=== PATIENT | female | born 1955 | race Caucasian/White ===

== ENCOUNTER 2024-03-15 16:06 | Emergency (ER) | payer MEDICARE ==
[~2024-03-15] VITALS: Ht 162.6 cm; Wt 62.0 kg
[~2024-03-15 16:06] MED LIST: ASCO-419; ASCO500T20 PO; CHOL500049 PO; CLOB15GE2 TOP; DESV100T16 PO; DESV50TA20 PO; DOXY-224 PO; LANS30CA56 PO; LEVO7.5T7 PO; LEVO750T68 PO; METH; MULT-1085 PO; OXYC-658 PO; TACROLIMUS; TRIA454O TOP; [UNRECOGNIZED DRUG - CODE] PO; clotrimazole; lidocaine
[2024-03-15 16:07] VITALS: BP 137/65; PULSE 110; RESP 18; TEMP 97.5; O2SAT 94
[2024-03-15 17:04] LABS: EOSINOPHILS # (AUTO) 0.1 X10'3 (0-0.9); EOSINOPHILS % (AUTO) 2.5 % (0-6); HEMATOCRIT 24.5 % (35.0-45.0); HEMOGLOBIN 7.9 g/dl (12.0-16.0); LYMPHOCYTES # (AUTO) 1.6 X10'3 (1.1-4.8); LYMPHOCYTES % (AUTO) 51.7 % (21-51); MEAN CORPUSCULAR HEMOGLOBIN 33.8 PG (27.0-31.0); MEAN CORPUSCULAR HGB CONC 32.2 g/dL (33.0-36.5); MEAN CORPUSCULAR VOLUME 104.8 FL (78-98); MEAN PLATELET VOLUME 9.8 FL (7.4-10.4); MONOCYTES # (AUTO) 0.7 X10'3 (0-0.9); MONOCYTES % (AUTO) 20.9 % (2-12); NEUTROPHILS # (AUTO) 0.8 X10'3 (1.8-7.7); NEUTROPHILS % (AUTO) 23.9 % (42-75); PLATELET COUNT 124 X10'3 (140-440); RED BLOOD COUNT 2.34 X10'6 (4.20-5.60); RED CELL DISTRIBUTION WIDTH 26.9 % (11.5-14.5); WHITE BLOOD COUNT 3.1 X10'3 (4.5-11.0)
[2024-03-15 23:12] LABS: PLATELET ESTIMATE DECREASED
[2024-03-15 23:13] LABS: ANISOCYTOSIS 3+; ELLIPTOCYTES FEW; HYPOCHROMASIA 1+; POLYCHROMASIA 1+; SCHISTOCYTES FEW; TEAR DROP CELLS FEW
== END 2024-03-15 21:40 | disposition home or self-care (01) ==
LOC: ER 16:06
DX: D64.9 Anemia, unspecified (principal); Z88.8 Allergy status to other drugs, medicaments and biological substances; Z79.899 Other long term (current) drug therapy; Z79.2 Long term (current) use of antibiotics
CPT/HCPCS: 36415; 85008; 85025; 99283

== ENCOUNTER 2024-07-25 14:07 | Inpatient (IN) | payer MEDICARE ==
[~2024-07-25] VITALS: Ht 167.6 cm; Wt 67.8 kg
[2024-07-25 15:25] LABS: BASOPHILS % (AUTO) 1.3 % (0-1); EOSINOPHILS # (AUTO) 0.3 X10'3 (0-0.9); EOSINOPHILS % (AUTO) 10.5 % (0-6); LYMPHOCYTES # (AUTO) 1.2 X10'3 (1.1-4.8); MEAN CORPUSCULAR HEMOGLOBIN 35.1 PG (27.0-31.0); MEAN CORPUSCULAR HGB CONC 33.4 g/dL (33.0-36.5); MEAN CORPUSCULAR VOLUME 105.2 FL (78-98); MEAN PLATELET VOLUME 10.9 FL (7.4-10.4); MONOCYTES # (AUTO) 0.1 X10'3 (0-0.9); MONOCYTES % (AUTO) 2.4 % (2-12); NEUTROPHILS # (AUTO) 1.5 X10'3 (1.8-7.7); NEUTROPHILS % (AUTO) 47.8 % (42-75); RED BLOOD COUNT 1.67 X10'6 (4.20-5.60); RED CELL DISTRIBUTION WIDTH 25.5 % (11.5-14.5); WHITE BLOOD COUNT 3.2 X10'3 (4.5-11.0)
[2024-07-25 15:28] LABS: HEMATOCRIT 17.6 % (35.0-45.0); HEMOGLOBIN 5.9 g/dl (12.0-16.0)
[2024-07-25 15:29] LABS: ALANINE AMINOTRANSFERASE 30 U/L (12-78); ALBUMIN 3.2 G/DL (3.4-5.0); ALBUMIN/GLOBULIN RATIO 1.1 (1.1-1.5); ALKALINE PHOSPHATASE 119 IU/L (46-116); ANION GAP 9 (8-16); ASPARTATE AMINO TRANSFERASE 31 U/L (10-37); BILIRUBIN,TOTAL 0.5 MG/DL (0.1-1.0); BLOOD UREA NITROGEN 24 MG/DL (7-18); BUN/CREATININE RATIO 31.2 (10.0-20.0); CALCIUM 8.7 MG/DL (8.5-10.1); CHLORIDE 100 MMOL/L (99-107); CREATININE 0.77 MG/DL (0.40-0.90); GLUCOSE 97 MG/DL (70-104); PLATELET COUNT 9 X10'3 (140-440); POTASSIUM 4.3 MMOL/L (3.5-5.1); SODIUM 136 MMOL/L (135-145); TOTAL CARBON DIOXIDE 27.3 MMOL/L (24-32); TOTAL PROTEIN 6.2 G/DL (6.4-8.2); eCRCL 63 ML/MIN; eGFR 74 ML/MIN
[2024-07-25 15:53] LABS: APTT 24 SECONDS (22-32); PROTHROMBIN TIME 10.8 SECONDS (9.0-12.0)
[2024-07-25 16:04] LABS: ANISOCYTOSIS 3+; PLATELET ESTIMATE DECREASED; TOTAL CELLS COUNTED 100
[2024-07-25 16:05] LABS: TEAR DROP CELLS FEW
[2024-07-25 16:06] LABS: HYPERSEGMENTED NEUTROPHILS FEW
[2024-07-25] MEDS ORDERED: magnesium sulf-water 4G/100mL 100 ML IV PRN (16:20)
[2024-07-25] MEDS ORDERED: magnesium Cl slow-release 64mg tablet PO PRN (16:20)
[2024-07-25] MEDS ORDERED: ondansetron/PF 4mg/2ml inj IV PRN (16:20)
[2024-07-25] MEDS ORDERED: magnesium sulf-water 2g/50mL 50 ML IV PRN (16:20)
[2024-07-25] MEDS ORDERED: potassium Cl 40MEQ/1/2NS 520ml 520 ML IV PRN (16:20)
[2024-07-25] MEDS ORDERED: potassium Cl 20 mEq SR tablet PO PRN ×2 (16:20)
[2024-07-25 19:00] VITALS: BP 102/42; PULSE 89; RESP 16; TEMP 98.2
[2024-07-25 19:29] VITALS: BP 117/50; PULSE 81; RESP 16; TEMP 98.3
[2024-07-25 19:50] VITALS: BP 113/54; PULSE 91; RESP 18; TEMP 98.2
[2024-07-25 20:20] VITALS: BP 113/5; PULSE 93; RESP 19; TEMP 98.5
[2024-07-25] MEDS ORDERED: LIDOCAINE 5% OINTMENT 35GM TP SCH (20:30)
[2024-07-25] MEDS ORDERED: neomy sulf/bacitrac zn/polymixin b oint 28.4 gm tube TP PRN (20:35)
[2024-07-25] MEDS ORDERED: LIDOCAINE 5% OINTMENT 35GM TP PRN (20:36)
[2024-07-25 21:32] VITALS: BP 117/50; PULSE 89; RESP 16; TEMP 98.3
[2024-07-26] VITALS (7 sets, daily range): BP systolic 103–121; BP diastolic 49–64; PULSE 84–99; RESP 15–20; TEMP 97.9–98.8; O2SAT 93–100
[2024-07-26] MEDS ORDERED: PREG50CA65 PO (00:02)
[2024-07-26] MEDS: montelukast 10mg tablet PO ONE (01:54)
[2024-07-26 06:13] LABS: EOSINOPHILS # (AUTO) 0.5 X10'3 (0-0.9); HEMOGLOBIN 8.3 g/dl (12.0-16.0); LYMPHOCYTES # (AUTO) 0.8 X10'3 (1.1-4.8); MONOCYTES # (AUTO) 0.1 X10'3 (0-0.9); NEUTROPHILS # (AUTO) 1.2 X10'3 (1.8-7.7); WHITE BLOOD COUNT 2.5 X10'3 (4.5-11.0)
[2024-07-26 06:17] LABS: BASOPHILS % (AUTO) 0.7 % (0-1); EOSINOPHILS % (AUTO) 19.3 % (0-6); HEMATOCRIT 24.3 % (35.0-45.0); LYMPHOCYTES % (AUTO) 30.9 % (21-51); MEAN CORPUSCULAR HEMOGLOBIN 33.9 PG (27.0-31.0); MEAN CORPUSCULAR HGB CONC 34.2 g/dL (33.0-36.5); MEAN CORPUSCULAR VOLUME 99.2 FL (78-98); MONOCYTES % (AUTO) 2.4 % (2-12); NEUTROPHILS % (AUTO) 46.7 % (42-75); RED BLOOD COUNT 2.45 X10'6 (4.20-5.60); RED CELL DISTRIBUTION WIDTH 17.2 % (11.5-14.5)
[2024-07-26 06:31] LABS: ALANINE AMINOTRANSFERASE 31 U/L (12-78); ALBUMIN 3.1 G/DL (3.4-5.0); ALBUMIN/GLOBULIN RATIO 1.2 (1.1-1.5); ALKALINE PHOSPHATASE 108 IU/L (46-116); ANION GAP 8 (8-16); ASPARTATE AMINO TRANSFERASE 27 U/L (10-37); BILIRUBIN,TOTAL 1.8 MG/DL (0.1-1.0); BLOOD UREA NITROGEN 15 MG/DL (7-18); BUN/CREATININE RATIO 23.8 (10.0-20.0); CALCIUM 8.3 MG/DL (8.5-10.1); CHLORIDE 107 MMOL/L (99-107); CREATININE 0.63 MG/DL (0.40-0.90); GLUCOSE 91 MG/DL (70-104); POTASSIUM 3.7 MMOL/L (3.5-5.1); SODIUM 143 MMOL/L (135-145); TOTAL CARBON DIOXIDE 28.4 MMOL/L (24-32); TOTAL PROTEIN 5.7 G/DL (6.4-8.2); eCRCL 77 ML/MIN; eGFR > 90 ML/MIN
[2024-07-26 06:55] LABS: ANISOCYTOSIS 1+; NUCLEATED RED BLOOD CELLS 1 /100WBC (0-0); PLATELET ESTIMATE DECREASED; TOTAL CELLS COUNTED 100
[2024-07-26 06:56] LABS: TEAR DROP CELLS FEW
[2024-07-26 10:02] LABS: PLATELET COUNT 50 X10'3 (140-440)
[2024-07-26] MEDS: acetaminophen 325mg tablet PO PRN (14:39)
[2024-07-26 15:42] LABS: BASOPHILS % (AUTO) 0.5 % (0-1); EOSINOPHILS # (AUTO) 0.5 X10'3 (0-0.9); EOSINOPHILS % (AUTO) 17.8 % (0-6); HEMATOCRIT 26.3 % (35.0-45.0); LYMPHOCYTES # (AUTO) 0.7 X10'3 (1.1-4.8); LYMPHOCYTES % (AUTO) 25.2 % (21-51); MEAN CORPUSCULAR HEMOGLOBIN 34.2 PG (27.0-31.0); MEAN CORPUSCULAR HGB CONC 34.4 g/dL (33.0-36.5); MEAN CORPUSCULAR VOLUME 99.5 FL (78-98); MEAN PLATELET VOLUME 9.4 FL (7.4-10.4); MONOCYTES # (AUTO) 0.1 X10'3 (0-0.9); MONOCYTES % (AUTO) 3.6 % (2-12); NEUTROPHILS # (AUTO) 1.5 X10'3 (1.8-7.7); NEUTROPHILS % (AUTO) 52.9 % (42-75); PLATELET COUNT 55 X10'3 (140-440); RED BLOOD COUNT 2.64 X10'6 (4.20-5.60); WHITE BLOOD COUNT 2.8 X10'3 (4.5-11.0)
[2024-07-26] MEDS: CHOLECALCIFEROL PO SCH (16:10)
[2024-07-26] MEDS ORDERED: SALIVA SUBSTITUTION COMBO NO 9 PO PRN (16:10)
[2024-07-26] MEDS: DOXYCYCLINE 100MG CAPSULE PO SCH (16:39)
[2024-07-26] MEDS: triamcinolone acetonide 0.1% ointment 15gm TP SCH (20:00)
[2024-07-26] MEDS ORDERED: CLOBETASOL PROPIONATE 0.05% BU SCH (20:00)
[2024-07-26] MEDS: pregabalin 25mg capsule PO SCH (20:05)
[2024-07-26] MEDS: oxyCODONE IR 5mg (immed. release) tablet PO PRN (22:41)
[2024-07-27 02:00] VITALS: BP 121/65; PULSE 94; RESP 18; TEMP 97.6; O2SAT 96
[2024-07-27] MEDS: clobetasol propionate ointment 15gm TP SCH (03:10)
[2024-07-27 06:14] LABS: BASOPHILS # (AUTO) 0.1 X10'3 (0-0.2); BASOPHILS % (AUTO) 1.5 % (0-1); EOSINOPHILS # (AUTO) 0.9 X10'3 (0-0.9); HEMATOCRIT 26.9 % (35.0-45.0); HEMOGLOBIN 9.2 g/dl (12.0-16.0); LYMPHOCYTES % (AUTO) 25.5 % (21-51); MEAN CORPUSCULAR HEMOGLOBIN 34.3 PG (27.0-31.0); MEAN CORPUSCULAR HGB CONC 34.3 g/dL (33.0-36.5); MEAN PLATELET VOLUME 8.7 FL (7.4-10.4); MONOCYTES # (AUTO) 0.2 X10'3 (0-0.9); NEUTROPHILS # (AUTO) 1.8 X10'3 (1.8-7.7); RED BLOOD COUNT 2.69 X10'6 (4.20-5.60); RED CELL DISTRIBUTION WIDTH 17.2 % (11.5-14.5); WHITE BLOOD COUNT 3.9 X10'3 (4.5-11.0)
[2024-07-27 06:19] LABS: PLATELET COUNT 41 X10'3 (140-440)
[2024-07-27 06:37] LABS: ALANINE AMINOTRANSFERASE 34 U/L (12-78); ALBUMIN 3.2 G/DL (3.4-5.0); ALBUMIN/GLOBULIN RATIO 1.1 (1.1-1.5); ALKALINE PHOSPHATASE 115 IU/L (46-116); ANION GAP 9 (8-16); ASPARTATE AMINO TRANSFERASE 25 U/L (10-37); BILIRUBIN,TOTAL 1.1 MG/DL (0.1-1.0); BLOOD UREA NITROGEN 11 MG/DL (7-18); CALCIUM 8.6 MG/DL (8.5-10.1); CHLORIDE 109 MMOL/L (99-107); GLUCOSE 89 MG/DL (70-104); POTASSIUM 3.5 MMOL/L (3.5-5.1); SODIUM 144 MMOL/L (135-145); TOTAL PROTEIN 6.2 G/DL (6.4-8.2); eCRCL 97 ML/MIN; eGFR > 90 ML/MIN
[2024-07-27 06:57] VITALS: BP 127/53; PULSE 92; RESP 15; TEMP 98.2; O2SAT 98
[2024-07-27] MEDS: DESVENLAFAXINE SUCCINATE 50 MG PO SCH (08:00)
[2024-07-27] MEDS: LEVOMEFOLATE CALCIUM PO SCH (08:00)
[2024-07-27] MEDS: TYPE IN GENERIC & BRAND NAME OF PATIENT MED STRENGTH & FORM PO SCH (08:00)
[2024-07-27 08:32] LABS: RED BLOOD COUNT 2.69 X10'6 (4.20-5.60); RETICULOCYTE % (AUTO) 3.2 % (0.5-1.5)
[2024-07-27 09:21] LABS: THYROID STIMULATING HORMONE 1.17 ulU/ml (0.34-4.50)
[2024-07-27 09:23] LABS: FERRITIN 1341 NG/ML (8-252)
[2024-07-27 09:39] VITALS: BP 111/56; PULSE 93; RESP 16; TEMP 98.3
[2024-07-27] MEDS: ascorbic acid 500mg tablet PO SCH (09:44)
[2024-07-27] MEDS: lansoprazole 15mg solutab PO SCH (09:45)
[2024-07-27 09:53] VITALS: BP 125/62; PULSE 99; RESP 16; TEMP 98
[2024-07-27 09:53] LABS: % IRON SATURATION 72 % (11-46); IRON 157 UG/DL (49-151); TOTAL IRON BINDING CAPACITY 217 UG/DL (259-388)
[2024-07-27 10:53] VITALS: BP 122/63; PULSE 89; RESP 18; TEMP 98.3
== END 2024-07-27 11:48 | disposition home health service (06) | DRG 809 ==
LOC: ER 14:08 → ED HOLD 16:23 → PCU 3S 21:45
PROVIDERS: ADMIT Internal Medicine; ATTEND Internal Medicine
PROC: 30233R1 Transfusion of Nonautologous Platelets into Peripheral Vein, Percutaneous Approach (ICD-10-PCS; principal; 2024-07-25)
PROC: 30233N1 Transfusion of Nonautologous Red Blood Cells into Peripheral Vein, Percutaneous Approach (ICD-10-PCS; 2024-07-25)
DX: D61.818 Other pancytopenia (principal); D69.3 Immune thrombocytopenic purpura; L03.115 Cellulitis of right lower limb; K21.9 Gastro-esophageal reflux disease without esophagitis; Z88.5 Allergy status to narcotic agent; L51.9 Erythema multiforme, unspecified; Z88.6 Allergy status to analgesic agent; Z86.711 Personal history of pulmonary embolism; Z79.899 Other long term (current) drug therapy
CPT/HCPCS: 36415; 36430; 71045; 80053; 82728; 83540; 83550; 84145; 84443; 85007; 85008; 85025; 85045; 85610; 85651; 85730; 86644; 86885; 86900; 86901; 86920; 86945; 87081; 93005; 99291; A6258; A6446; A6449; G0378; J7040; P9016; P9035

== ENCOUNTER 2024-08-14 11:17 | Outpatient (CLI) | payer MEDICARE ==
[~2024-08-14 11:17] MED LIST changes: -DOXY-224 PO; +GADOTERATE MEGLUMINE 7.5 MMOL/15 ML VIAL IV ONE; -LEVO750T68 PO; -METH; +PREG50CA65 PO; -TACROLIMUS; -clotrimazole; -lidocaine
== END 2024-08-14 23:59 | disposition home or self-care (01) ==
LOC: RAD 11:17 → MRI02 23:59
PROVIDERS: ATTEND Internal Medicine
DX: I08.8 Other rheumatic multiple valve diseases (principal); R06.09 Other forms of dyspnea; R23.4 Changes in skin texture; R60.9 Edema, unspecified; M34.9 Systemic sclerosis, unspecified
CPT/HCPCS: 73720; 73723; 93306; A9575

== ENCOUNTER 2024-10-22 18:27 | Emergency (ER) | payer MEDICARE ==
[~2024-10-22] VITALS: Ht 167.6 cm; Wt 72.6 kg
[~2024-10-22 18:27] MED LIST changes: -GADOTERATE MEGLUMINE 7.5 MMOL/15 ML VIAL IV ONE
[2024-10-22 18:32] VITALS: BP 129/78; PULSE 85; RESP 16; O2SAT 100
--- NOTE | 2024-10-22 18:58 | RADIOLOGY REPORT ---
INDICATION: WRIST PAIN TECHNIQUE: 4 radiographic views of the wrist were obtained. COMPARISON: None FINDINGS: The radio-ulnar, , intercarpal and metacarpal-carpal joints appear unremarkable.There is co mminuted fracture of the distal left radius. There is avulsion fracture of the ulnar styloid process. The fracture is involving the radiocarpal joint. There is mild osteopenia. The visualized joint spac e is well maintained.The alignment is anatomical.The surrounding soft tissues are unremarkable.There is no bony lesions or erosions identified. IMPRESSION: 1. Comminuted fracture distal left radius involving the radiocarpal joint and avulsion fracture of th e ulnar styloid. 2. Osteopenia
[2024-10-22] MEDS ORDERED: LIDOcaine 1% W/epiNEPHrine 1:200,000 10ml vial IJ STA (19:33)
--- NOTE | 2024-10-22 19:47 | Physician Documentation ---
History of Present Illness ~ Chief Complaint: Hand pain Stated Complaint: LT WRIST PAIN Time Seen by MD: 19:28 OK to notify your PCP?: Yes Source: patient Mode of Arrival: POV Exam Limitations: no limitations HPI Lucy is a 69-year-old female who put her right hand down to try to catch herself from falling. She is having swelling and pain to the left wrist. She has not taken anything for the pain prior to arrival. Timing/Duration: gradual onset Tetanus within 5 years: No Medication Reconciliation Allergies: Coded Allergies: hydrocodone (Verified Allergy, Unknown, 10/22/24) Scheduled Ascorbic Acid (Vitamin C), 2 TAB PO DAILY, (Reported) Cholecalciferol (Vitamin D3) (Vitamin D3), 1 CAP PO Q7D, (Reported) Clobetasol Propionate (Clobetasol Propionate), 1 APPLIC TOP BID, (Reported) Desvenlafaxine Succinate (Desvenlafaxine Succinate ER), 1 TAB PO DAILY, (Reported) Desvenlafaxine Succinate (Desvenlafaxine Succinate ER), 1 TAB PO DAILY, (R eported) Lansoprazole (Lansoprazole), 1 CAP PO DAILY, (Reported) Levomefolate Calcium (l-Methylfolate), 1 TAB PO DAILY, (Reported) Pregabalin (Pregabalin), 1 CAP PO BID, (Reported) Triamcinolone Acetonide (Triamcinolone Acetonide), 1 APPLIC TOP BID, (Reported) Scheduled PRN Oxycodone Hcl (Oxycodone Hcl), 1 TAB PO TID PRN PRN for pain Oxycodone Hcl IR* (Oxycodone IR*), 10 MG PO Q6H PRN for moderate or severe pain 4-10 Saliva Substitution Combo No.9 (Biotene Pbf), 15 ML PO 5XD PRN for MOUTH PAIN, (Reported) Miscellaneous Medications Ascorbic Acid (Vitamin C), (Reported) Multivitamin (Multi Vitamin Daily), 1 EACH PO, (Reported) Past Medical History Past Medical History: *HEMATOLOGY* Past Surgical History: noncontributory Drug Use: none Lives In: Home Review of Systems All Other Systems at this time: Reviewed and Negative Physical Exam Vital Signs: RN Vital Signs have been reviewed: Yes, Temperature: 98.6, Source: Temporal, Heart Rate: 85, Respiratory Rate: 16, BP: 129/78, Pulse Oximetry: 100, Weight: 72.600 Oxygen Flow Rate: 0 Pulse Oximetry Reflects: adequate oxygenation Physical Exam General: Alert, no apparent distress. HEENT: PERRL, EOMI, no injection, moist mucous membranes. Neck: Full range of motion. Respiratory: Lungs clear, no respiratory distress. Chest: No accessory muscle use. Cardiovascular: Regular rate and rhythm, no murmurs. Gastrointestinal: Soft, nontender, nondistended. Bowels sounds present. Extremities: Decreased range of motion and tenderness to left wrist with deformity. Good CSM, good pulses 2+. Neurologic: Oriented x4. Psychiatric: Normal mood and affect. Skin: Normal color, warm and dry. No edema, no ecchymosis. Procedures Joint Reduction : Joint Reduction Site: left wrist Reduction By: myself Conscious Sedation: No Medications/Dose: Lidocaine 1% with [id number] epi. 6 mL hematoma block Reduction Attempts: 2 Pre-Procedure NV Exam: within normal limits Post-Procedure NV Exam: within normal limits Post Reduction Film: poor alignment Tolerated Procedure Well?: yes, no complications Procedure Note Two attempts to reduce left wrist with hematoma block. With traction there was improvement with a fracture but it soon as I let go the bones with slight back over each other each attempt. We splinted with a plaster sugar-tong and applied a splint. Progress Results/Orders Reviewed/noted all lab results: Yes Results/Orders Orders - PITA MCCAIN Ortho Orders (10/22/24 ) Oxycodone Sr Tablet (Oxycontin Tablet) (10/22/24 20:50) Completed Orders - PITA MCCAIN Lidocaine 1% W/Epi 1:100,000 (Xylocaine (10/22/24 19:40) Vital Signs 10/22/24 18:32 Temp 98.6 Pulse 85 Resp 16 B/P (MAP) 129/78 Pulse Ox 100 O2 Flow Rate 0 EKG/XRAY/CT/US/VASC/MRI Bone/Soft Tissue X-Ray (Ext.) : Additional Comment Left wrist X-ray as interpreted by me; no joint effusion or foreign body. Comminuted fracture distal left radius involving the radiocarpal joint and avulsion fracture of the ulnar styloid and Osteopenia Medical Decision Making Findings Lucy is a 69-year-old female with a wrist deformity after falling today. No head strike or loss of consciousness or thinners. No other injuries from her fall. No other injuries. I did a hematoma block and attempted to reduce the fracture twice with no success. We applied a sugar-tong splint and sling. She has been educated to follow up with Orthopedics as well as her primary care provider in the next 3 days. She reports that she is unable to take ibuprofen and that she gets itchy with hydrocodone so I have ordered some oxycodone prescription as well as a single dose here in the department. She is still having some pain up her arm despite the hematoma block. She reports that she has not had any adverse reactions with oxycodone when taking in the past for her old right wrist fracture. X-ray shows: 1. Comminuted fracture distal left radius involving the radiocarpal joint and avulsion fracture of the ulnar styloid. 2. Osteopenia. She reports that she knows she has osteopenia in her hips. General Diff Dx:Considerations: Include: Contusion, Hematoma, Malunion, Neurovascular injury, Open fracture, Sprain Departure Disposition: HOME / SELF CARE / HOMELESS Impression: Primary Impression: Radius and ulna distal fracture Condition: Stable Discharge Instructions: Closed Reduction for Wrist or Forearm, Care After, Wrist Fracture Treated With Immobilization, [id number] Additional Instructions: Your x-ray shows: 1. Comminuted fracture distal left radius involving the radiocarpal joint and avulsion fracture of the ulnar styloid. 2. Osteopenia. Please use Tylenol at home for pain relief and if that is not helping then you can use the oxycodone. Try the 1st dose with splitting the pill in half and if that is still not helping on the next dose you can take a full tablet. No driving with this medication. Please keep the splint clean and dry. Return back here if you notice any color change or numbness or tingling of the fingers as the splint may be too tight from the swelling or any other concerning symptoms. Please do not put any rings on your fingers of the affected hand. Follow up with her primary care provider in the next 3 days and receive a referral to Orthopedics. We attempted to reduce your fracture although I do not believe that this was fully successful. Referrals: NO PRIMARY CARE PROVIDER (PCP) Prescriptions Oxycodone Hcl (Oxycodone Hcl) 10 Mg Tablet 1 TAB PO TID PRN PRN for pain for 5 Days, #15 TAB Prov: PITA MCCAIN 10/22/24 Education Educated: Patient Educated regarding: diagnosis, treatment, prognosis, need for follow up Signature Scribe Signature: . Attestation: Scribed for Pita Mccainp by Pita Hart NP . 10/22/24 20:49 PITA MCCAINP October 22, 2024 19:47
[2024-10-22] MEDS: LIDOcaine 1% W/epiNEPHrine 1:100,000 20ml vial SQ ONE (20:06)
[2024-10-22] MEDS ORDERED: OXYC10TA47 PO (20:47)
[2024-10-22 20:55] VITALS: TEMP 98.6
[2024-10-22] MEDS: oxyCODONE SR 10mg (sust. release) tab PO ONE (21:11)
== END 2024-10-22 21:14 | disposition home or self-care (01) ==
LOC: ER 18:28
DX: S52.592A Other fractures of lower end of left radius, initial encounter for closed fracture (principal); S52.692A Other fracture of lower end of left ulna, initial encounter for closed fracture; Z88.5 Allergy status to narcotic agent; W19.XXXA Unspecified fall, initial encounter; Y93.89 Activity, other specified; Y92.89 Other specified places as the place of occurrence of the external cause; Y99.8 Other external cause status
CPT/HCPCS: 25605; 73110; 99284; A4565

== ENCOUNTER 2024-11-04 08:03 | Day surgery (SDC) | payer MEDICARE ==
[~2024-11-04] VITALS: Ht 167.6 cm; Wt 70.4 kg
[2024-11-04] MEDS: ceFAZolin 2gm/dext,iso 50mL 50 ML IV ONE (05:30)
[~2024-11-04 08:03] MED LIST changes: +ARIP2TAB67 PO; -ASCO-419; -ASCO500T20 PO; +CHOL500044 PO; -CLOB15GE2 TOP; +CYAN250010 PO; +DESV100T6 PO; +ESZO3TAB66 PO; +FERR-116 PO; +HYDR200T73 PO; +HYDR200T80 PO; -LANS30CA56 PO; +LYR25C PO; +MULT-1130 PO; +MULT-1166 PO; +OMEP20CA15 PO; +OMEP40CA21 PO; +OXYC-145 PO; -OXYC-658 PO; +POLY119P2 PO; +POTA8CAP20 PO; +POTA8TAB69 PO; +PREG75CA76 PO; -TRIA454O TOP; -[UNRECOGNIZED DRUG - CODE] PO; +famotidine 20mg tablet PO ONE
[2024-11-04 08:50] VITALS: BP 139/76; PULSE 89; RESP 16; TEMP 98.8; O2SAT 96
[2024-11-04] MEDS: famotidine/PF 10 mg/ml inj IV ONE (09:43)
[2024-11-04] MEDS: ringers solution, lacted 1,000 ML IV SCH ×2 (09:43→13:42)
[2024-11-04] MEDS ORDERED: cloNIDine hcl/PF 100mcg/ml inj ONE (10:14)
[2024-11-04 10:33] LABS: BASOPHILS % (AUTO) 0.8 % (0-1); EOSINOPHILS # (AUTO) 0.1 X10'3 (0-0.9); EOSINOPHILS % (AUTO) 2.6 % (0-6); LYMPHOCYTES # (AUTO) 1.6 X10'3 (1.1-4.8); LYMPHOCYTES % (AUTO) 43.3 % (21-51); MEAN CORPUSCULAR HEMOGLOBIN 30.5 PG (27.0-31.0); MEAN CORPUSCULAR HGB CONC 32.7 g/dL (33.0-36.5); MEAN CORPUSCULAR VOLUME 93.4 FL (78-98); MEAN PLATELET VOLUME 7.4 FL (7.4-10.4); MONOCYTES # (AUTO) 0.3 X10'3 (0-0.9); MONOCYTES % (AUTO) 8.8 % (2-12); NEUTROPHILS # (AUTO) 1.6 X10'3 (1.8-7.7); NEUTROPHILS % (AUTO) 44.5 % (42-75); PRE OP HEMATOCRIT 43.7 % (35.0-45.0); PRE OP HEMOGLOBIN 14.3 g/dL (12.0-16.0); PRE OP PLATELET COUNT 171 X10'3 (140-440); PRE OP WHITE BLOOD COUNT 3.7 10'3 (4.8-10.8); RED BLOOD COUNT 4.67 X10'6 (4.20-5.60); RED CELL DISTRIBUTION WIDTH 12.5 % (11.5-14.5)
--- NOTE | 2024-11-04 10:38 | ELECTROCARDIOGRAPH REPORT ---
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 Lorelei Velazco Measurements Intervals [place] Rate: 76 P: 47 HI: 92 QRS: 52 QRSD: 97 T: 51 QT: 400 QTc: 450 Interpretive Statements Sinus rhythm Short HI interval Electronically Signed On 11-04-2024 20:57:[address] Lorelei Velazco Please click the below link to view image of tracing.
[2024-11-04 10:48] LABS: ALBUMIN 3.2 G/DL (3.4-5.0); ALBUMIN/GLOBULIN RATIO 0.9 (1.1-1.5); ALKALINE PHOSPHATASE 188 IU/L (46-116); BLOOD UREA NITROGEN 13 MG/DL (7-18); BUN/CREATININE RATIO 18.6 (10.0-20.0); CALCIUM 8.9 MG/DL (8.5-10.1); CHLORIDE 105 MMOL/L (99-107); PRE OP ALT 26 U/L (30-65); PRE OP ANION GAP 3 (8-16); PRE OP AST 21 U/L (10-37); PRE OP BILIRUB, TOTAL 0.4 MG/DL (0.0-1.0); PRE OP GLUCOSE 94 MG/DL (70-104); PRE OP POTASSIUM 3.9 MMOL/L (3.4-5.1); PRE OP SODIUM 140 MMOL/L (135-145); TOTAL CARBON DIOXIDE 32.2 MMOL/L (24-32); TOTAL PROTEIN 6.6 G/DL (6.4-8.2); eCRCL 69 ML/MIN; eGFR 82 ML/MIN
[2024-11-04] MEDS ORDERED: ketorolac trometh 15mg/ml vial 15 MG/ML ML IV ONE (11:20)
[2024-11-04] MEDS ORDERED: ondansetron/PF 4mg/2ml inj IV PRN (11:20)
[2024-11-04] MEDS ORDERED: hydrALAZINE 20mg/ml inj. IV PRN (11:20)
[2024-11-04] MEDS ORDERED: morphine 2 MG/ML inj. syringe IV PRN (11:20)
[2024-11-04] MEDS ORDERED: morphine 4 MG/ML inj SYRINge IV PRN (11:20)
[2024-11-04] MEDS ORDERED: meperidine/PF 25mg/ml syringe IV PRN (11:20)
[2024-11-04] MEDS ORDERED: proCHLORperazine 10 MG/2 ml inj IV PRN (11:20)
[2024-11-04] MEDS ORDERED: labetalol 20mg/4ml (5mg/ml) syringe IV PRN (11:20)
[2024-11-04] MEDS ORDERED: HYDROmorphone/PF 0.2 MG/ML SYRINGE IV PRN ×2 (11:20)
[2024-11-04] MEDS ORDERED: fentaNYL/PF 50MCG/1 ML 2ML syringe ONE (11:59)
[2024-11-04] MEDS ORDERED: sevoflurane 250ml liquid IH ONE (12:20)
[2024-11-04] MEDS ORDERED: propofol inj 20 ML IV ONE (12:34)
[2024-11-04] MEDS ORDERED: ePHEDrine 50MG/ML INJ. ONE (12:34)
[2024-11-04] MEDS ORDERED: dexamethasone sod phosphate 4mg/ml inj. ONE (12:34)
[2024-11-04] MEDS ORDERED: midazolam 1 mg/ML 2ml injection ONE (12:34)
[2024-11-04] MEDS ORDERED: LIDOcaine 2% (20mg/ml) 5ml vial ONE (12:34)
[2024-11-04] MEDS ORDERED: ROPIVAcaine 0.5% (5mg/ml) 30ml vial ONE (12:34)
[2024-11-04] MEDS ORDERED: phenylephrine 10mg/ml inj. ONE (12:53)
[2024-11-04 12:59] VITALS: BP 115/67; PULSE 86; RESP 14; O2SAT 100
[2024-11-04 13:10] VITALS: BP 153/79; PULSE 96; RESP 16; O2SAT 100
[2024-11-04 13:20] VITALS: BP 136/71; PULSE 99; RESP 15; O2SAT 100
[2024-11-04 13:30] VITALS: BP 142/73; PULSE 101; RESP 18; O2SAT 97
[2024-11-04 13:40] VITALS: BP 127/70; PULSE 96; RESP 13; O2SAT 96
--- NOTE | 2024-11-04 15:08 | OPERATIVE REPORT ---
Operative Report Providers to ~ Date of Procedure: Nov 04, 2024 Pre-Operative Diagnosis: Left wrist distal radius fracture Post-Operative Diagnosis SAME as PRE-Op Procedure Performed Left wrist open reduction internal fixation of distal radius fracture 3+ fragm ents Surgeon: Yon Saucedo MD [employer] Supervisor None Anesthesiologist: Anderson Roman Type of Anesthesia: Regional (Axillary block and general anesthetic) Findings: Prosthetics\Implants used: Bone bridge distal radius plate and screws Estimated Blood Loss: None Specimen Removed: None Description of Procedure: The patient is a 69 year old with an unstable left distal radius fracture. The injury was proximally 12 days ago. X-rays showed a approximately 60 of dorsal angulation Surgery is indicated to improve function and prevent deformity. The risks, benefits, expected results, and possible complications of the planned procedure had been explained to the patient and informed consent obtained. After the block was administered, the tourniquet was inflated on the upper arm and the arm was prepped and draped, an incision was made over the flexor carpi radialis tendon, with an interval in the deeper tissues between it and the radial artery. The pronator Quadratus was elevated off the distal radius, exposing the fracture. The fracture was eventually reduced with traction, instrumentation, and bone clamps. The bone bridge standard distal radius locking plate was used, affixed over the fracture, with proximal screws. After confirming position on C-arm, the extra and intra articular fracture was reduced to the plate and held with distal locking screws, stabilizing the articular surface. Final fluoro imaging was done, confirming screw placement and reduction. The wound was irrigated and closed in layers. Marcaine was injected, and a sterile dressing was applied, followed by a short arm plaster splint. The tourniquet was released and the patient was returned to the PACU in stable condition. Sponge and needle counts were correct. YON SAUCEDO Jr., MD Nov 04, 2024 15:08
== END 2024-11-04 13:59 | disposition home or self-care (01) ==
LOC: MERGE 08:03 → PAS 08:03
PROVIDERS: ATTEND Orthopaedic Surgery Hand Surgery
DX: S52.572A Other intraarticular fracture of lower end of left radius, initial encounter for closed fracture (principal); F32.A Depression, unspecified; W07.XXXA Fall from chair, initial encounter; Y93.89 Activity, other specified; Y92.89 Other specified places as the place of occurrence of the external cause; Y99.8 Other external cause status; Z79.899 Other long term (current) drug therapy; G89.18 Other acute postprocedural pain; Z90.710 Acquired absence of both cervix and uterus; Z90.49 Acquired absence of other specified parts of digestive tract
CPT/HCPCS: 25609; 36415; 64417; 80053; 85025; 93005; A4215; A4618; A6222; A6449; A7000; C1713; J0735; J1100; J2003; J2250; J2371; J2704; J2795; J3010; J3490; J7030; J7120; Z7506; Z7508; Z7512; Z7610